=== PATIENT | male | born 1965 | race Caucasian/White ===

== ENCOUNTER 2020-07-24 04:28 | Emergency (ER) | payer BC, OTHER ==
--- OUTSIDE RECORDS SUMMARY | 2020-07-24 04:30 | XMS REPORT | Continuity of Care Document ---
:1965 Author Organization [facility] t Address [address] [place] [address] Dr. [address] [place] [address] Care Team Providers Name Role Phone Unavailable Unavailable Unavailable Problems Condition Condition Condition Status Onset Resolution Last Treating Co mments Source Name Details Category Date Date Treatment Clinician Date Allergic Allergic Problem [facility], [facility] - unspecifie unspecifie Me moria d d l seasonalit seasonalit Ou tpati y, y, ent unspecifie unspecifie Cl inics d trigger d trigger Mixed Mixed Problem Active [facility] hyperlipid hyperlipid [place] - emia emia [facility] ent Clinics HTN, goal HTN, goal Problem Active [facility] below below [facility] - 140/90 140/90 [facility] ent Clinics 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 sterolemia Me [facility] ent Clinics Gout Gout Problem Active [facility] involving involving Luke s - toe of toe of Memoria right right l foot, foot, Outpati unspecifie unspecifie en t d cause, d cause, Clinic s unspecifie unspecifie d d chronicity chronicity 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 Claudio kira in situ in situ l [facility] Skin Skin Diagnosis Active [facility] lesion of lesion of Luke s - hand hand Memoria l [facility] ent Clinics Allergies, Adverse Reactions, Alerts Allergy Allergy Status Severity Reaction(s) Onset Inactive Treating Comm ents Source Name Type Date Date Clinician Lisinopr Adverse Active flush, cough C HI [facility] il Reaction [facility] Medications Ordered Filled Start Stop Current Ordering Indication Dosage Frequency Signature Comments Components Source Medication Medication Date Date Medication? Clinician (SIG) Name Name Losartan Losartan Yes Inder [address] [facility] Potassium Potassium 1-10 Carmona Luke s - 00:00: Memoria 00 l Outpati ent Clinics Lisinopril Lisinopril Yes Inder [address] [facility]ona [facility] Outpati ent Clinics Claritin Claritin Yes Inder [address] [facility] Outpati ent Clinics Atorvastati Atorvastati Yes Inder [address] [facility] n Calcium n Calcium Carmona [facility] Simvastatin Simvastatin Yes Inder [address] [facility] Carmona in the [facility] Procedures This patient has no known procedures. Encounters Start End Encounter Admission Attending Care Care Encounter Source Date/Time Date/Time Type Type Clinicians Facility Department ID 2019-11-12 2019-11-12 [facility] [id number] [facility] 11:30:00 11:30:00 [facility] Medicine Outpati ent Clinics 2019-10-20 2019-10-20 [facility] [id number] [facility] 16:18:00 16:18:00 [facility] Medicine Outpati ent Clinics 2019-10-15 2019-10-15 [facility] [id number] 14:46:00 14:46:00 [facility] Medicine Outpati ent Clinics 2019-08-28 2019-08-28 [facility] [id number] [facility] 09:30:00 09:30:00 [facility] Medicine Outpati ent Clinics 2019-06-20 2019-06-20 [facility] [id number] [facility] 08:30:00 08:30:00 [facility] Medicine Outpati ent Clinics 2019-05-09 2019-05-09 [facility] [id number] [facility] 08:30:00 08:30:00 [facility] Medicine Outpati ent Clinics 2019-02-12 2019-02-12 [facility] [id number] 07:17:00 07:17:00 [facility] Medicine Outpati ent Clinics 2019-02-05 2019-02-05 Outpatient Izabella Churchill [id number] 15:00:00 15:00:00 [facility] Medicine l Medicine [facility] Results This patient has no known results.
[2020-07-24] MEDS ORDERED: ACETAMINOPHEN 500 MG TAB ONE (05:14)
[2020-07-24] MEDS ORDERED: MORPHINE 2 MG/ML SYR ONE (05:14)
[2020-07-24] MEDS ORDERED: ONDANSETRON 4 MG/2 ML VIAL ONE (05:15)
[2020-07-24] MEDS ORDERED: NA CHLORIDE 0.9% 0 ML IV ONE (05:15)
[2020-07-24] MEDS ORDERED: METRONIDAZOLE 500mg IVPB 500 MG/100 ML BAG IV ONE (05:15)
[2020-07-24] MEDS ORDERED: CIPROFLOXACIN 400mg IV 400 MG/200 ML BAG IV ONE (05:15)
[2020-07-24] MEDS ORDERED: NA CHLORIDE 0.9% 1,000 ML ONE (05:15)
[2020-07-24 05:35] LABS: Absolute Lymphocytes (CBC) 0.5 K/uL (0.7-4.9); Basophils % 0.1 % (0-1.3); Hematocrit 50.6 % (39.6-49.0); Lymphocytes % 6.5 % (15.3-44.8); MPV 8.6 fL (7.6-11.3); RBC Red Blood Cell Count 5.43 M/uL (4.33-5.43)
[2020-07-24 05:38] LABS: ALT/SGPT 58 U/L (12-78); AST/SGOT 26 U/L (15-37); Albumin 3.9 g/dL (3.4-5.0); Alkaline Phosphatase 85 U/L (45-117); BUN Blood Urea Nitrogen 10 mg/dL (7-18); Bicarbonate 20 mmol/L (21-32); Bilirubin Direct < 0.1 mg/dL (0-0.2); Bilirubin Total 0.6 mg/dL (0.2-1.0); Glucose Level 136 mg/dL (74-106); Lipase 159 U/L (73-393); Potassium 3.6 mmol/L (3.5-5.1); Protein, Total 8.3 g/dL (6.4-8.2); Sodium Level 138 mmol/L (136-145)
--- NOTE | 2020-07-24 06:35 | EDPHYS ---
Physician Documentation [facility] Name: Neymar Gottlieb Age: 55 yrs Sex: Male : 1965 Arrival Date: 07/24/2020 Time: 04:30 Bed 5 Private MD: Mathew [facility] ED Physician Maged Cox HPI: 07/24 05:06 This 55 yrs old Male presents to ER via Ambulatory with complaints of Fever, naveen chills, Diarrhea. 05:06 The patient reports fever, that was measured at 104 degrees Fahrenheit. Onset: The naveen symptoms/episode began/occurred 3 day(s) ago. Modifying factors: there are no obvious modifying factors. Associated signs and symptoms: Pertinent positives: abdominal pain, arthralgias, diarrhea. Severity of symptoms: At their worst the symptoms were mild moderate in the emergency department the symptoms are unchanged. The patient has not experienced similar symptoms in the past. - Immunization history:: Adult Immunizations up to date. - Social history:: Smoking status: Patient denies any tobacco usage or history of. ROS: 05:09 Eyes: Negative for injury, pain, redness, and discharge, ENT: Negative for injury, naveen pain, and discharge, Neck: Negative for injury, pain, and swelling, Cardiovascular: Negative for chest pain, palpitations, and edema, Respiratory: Negative for shortness of breath, cough, wheezing, and pleuritic chest pain, Back: Negative for injury and pain, : Negative for injury, bleeding, discharge, and swelling, MS/Extremity: Negative for injury and deformity, Skin: Negative for injury, rash, and discoloration, Neuro: Negative for headache, weakness, numbness, tingling, and seizure, Psych: Negative for depression, anxiety, suicide ideation, homicidal ideation, and hallucinations, Allergy/Immunology: Negative for hives, rash, and allergies, Endocrine: Negative for neck swelling, polydipsia, polyuria, polyphagia, and marked weight changes, Hematologic/Lymphatic: Negative for swollen nodes, abnormal bleeding, and unusual bruising. 05:09 Constitutional: Positive for body aches, chills, fatigue, fever, malaise. 05:09 Abdomen/GI: Positive for abdominal pain, diarrhea. Exam: 05:09 Head/Face: Normocephalic, atraumatic. Eyes: Pupils equal round and reactive to light, naveen extra-ocular motions intact. Lids and lashes normal. Conjunctiva and sclera are non-icteric and not injected. Cornea within normal limits. Periorbital areas with no swelling, redness, or edema. ENT: Nares patent. No nasal discharge, no septal abnormalities noted. Tympanic membranes are normal and external auditory canals are clear. Oropharynx with no redness, swelling, or masses, exudates, or evidence of obstruction, uvula midline. Mucous membranes moist. Neck: Trachea midline, no thyromegaly or masses palpated, and no cervical lymphadenopathy. Supple, full range of motion without nuchal rigidity, or vertebral point tenderness. No Meningismus. Chest/axilla: Normal chest wall appearance and motion. Nontender with no deformity. No lesions are appreciated. Cardiovascular: Regular rate and rhythm with a normal S1 and S2. No gallops, murmurs, or rubs. Normal PMI, no JVD. No pulse deficits. Respiratory: Lungs have equal breath sounds bilaterally, clear to auscultation and percussion. No rales, rhonchi or wheezes noted. No increased work of breathing, no retractions or nasal flaring. Back: No spinal tenderness. No costovertebral tenderness. Full range of motion. Male : Normal genitalia with no discharge or lesions. Skin: Warm, dry with normal turgor. Normal color with no rashes, no lesions, and no evidence of cellulitis. MS/ Extremity: Pulses equal, no cyanosis. Neurovascular intact. Full, normal range of motion. Neuro: Awake and alert, GCS 15, oriented to person, place, time, and situation. Cranial nerves II-XII grossly intact. Motor strength 5/5 in all extremities. Sensory grossly intact. Cerebellar exam normal. Normal gait. Psych: Awake, alert, with orientation to person, place and time. Behavior, mood, and affect are within normal limits. 05:09 Constitutional: The patient appears febrile. 05:09 Cardiovascular: Rate: tachycardic, Rhythm: regular, Pulses: Pulses are 4+ in bilateral radial, brachial, femoral, popliteal, posterior tibial and and dorsalis pedis arteries.. Heart sounds: normal, Edema: is not appreciated, JVD: is not appreciated. 05:09 Abdomen/GI: Inspection: abdomen appears normal, Bowel sounds: normal, Palpation: mild abdominal tenderness, in all quadrants, Liver: no appreciated palpable abnormalities, Hernia: not appreciated. Vital Signs: 04:42 BP 160 / 86; Pulse 108; Resp 18; Temp 100.3; Pulse Ox 95% on R/A; ll2 05:44 BP 131 / 78; Pulse 93; Resp 16; Pulse Ox 95% on R/A; Pain 0/10; ll2 06:45 BP 112 / 61 Supine; Pulse 91; ea 06:45 BP 122 / 76 Sitting; Pulse 94; ea 06:45 BP 111 / 72 Standing; Pulse 97; ea MDM: 04:38 Patient medically screened. [facility] 05:12 Differential diagnosis: Nonspecific abd pain, gastritis, cholecystitis, pancreatitis, naveen appendicitis, diverticulitis, viral gastroenteritis, gastroenteritis, viral Infection, bacterial infection. Data reviewed: vital signs, nurses notes, lab test result(s), radiologic studies, CT scan. Data interpreted: residential monitor: rate is 108 beats/min, rhythm is regular, Pulse oximetry: on room air is 95 %. Test interpretation: by ED physician or midlevel provider:. Counseling: I had a detailed discussion with the patient and/or guardian regarding: the historical points, exam findings, and any diagnostic results supporting the discharge/admit diagnosis, lab results, radiology results, the need for outpatient follow up, for definitive care, a family practitioner, a road traffic controller. 07/24 04:57 Order name: Basic Metabolic Panel; Complete Time: 06:01 [facility] 07/24 04:57 Order name: CBC with Diff; Complete Time: 06:01 [facility] 07/24 04:57 Order name: Hepatic Function; Complete Time: 06:01 [facility] 07/24 04:57 Order name: Lipase; Complete Time: 06:01 [facility] 07/24 04:57 Order name: Occult Blood [facility] 07/24 04:57 Order name: Stool Culture [facility] 07/24 04:57 Order name: Fecal Leukocyte Stain [facility] 07/24 04:57 Order name: CT Abd/Pelvis - IV Contrast Only [facility] 07/24 05:31 Order name: CREATININE WHOLE BLOOD; Complete Time: 06:01 [facility] 07/24 05:31 Order name: CREATININE WHOLE BLOOD [facility] 07/24 04:57 Order name: IV Saline Lock; Complete Time: 04:57 [facility] 07/24 04:57 Order name: Labs collected and sent; Complete Time: 04:57 naveen Administered Medications: 05:21 Drug: Cipro 400 mg Volume: 200 ml; Route: IVPB; Infused Over: 60 mins; Site: right ll2 antecubital; 05:22 Drug: Tylenol 1000 mg Route: PO; ll2 06:10 Follow up: Response: No adverse reaction ll2 05:22 Drug: NS 0.9% 1000 ml Route: IV; Rate: 1 bolus; Site: right antecubital; ll2 06:53 Follow up: Response: No adverse reaction; IV Status: Completed infusion ll2 05:23 Drug: Flagyl 500 mg Volume: 100 ml; Route: IVPB; Rate: 200 ml/hr; Infused Over: 30 ll2 mins; Site: right antecubital; 06:10 Follow up: Response: No adverse reaction; IV Status: Completed infusion ll2 05:23 Drug: morphine 2 mg Route: IVP; Site: right antecubital; ll2 06:53 Follow up: Response: No adverse reaction; RASS: Alert and Calm (0) 2 05:23 Drug: Zofran (Ondansetron) 4 mg Route: IVP; Site: right antecubital; ll2 06:10 Follow up: Response: No adverse reaction ll2 06:53 Not Given (Physician Discretion): NS 0.9% 1000 ml IV at 1 bolus Per protocol; 1000 mL ll2 bolus Disposition: 07/24/20 06:35 Discharged to Home. Impression: Abdominal tenderness, Diarrhea, unspecified, Fever, unspecified, Left sided colitis with complications - desending and sigmoidcolon. - Condition is Stable. - Discharge Instructions: Abdominal Pain, Adult, Food Choices to Help Relieve Diarrhea, Adult, Diarrhea, Adult, Fever, Adult, Abdominal Pain, Adult, Griy-rs-Diam, Diarrhea, Adult, [id number]. - Prescriptions for Bentyl 20 mg Oral Tablet - take 1 tablet by ORAL route every 6 hours As needed; 20 tablet. Flagyl 500 mg Oral Tablet - take 1 tablet by ORAL route every 12 hours for 7 days; 14 tablet. Cipro 500 mg Oral Tablet - take 1 tablet by ORAL route every 12 hours for 7 days; 14 tablet. - Medication Reconciliation Form, Thank You Letter, Antibiotic Education, Prescription Opioid Use form. - Follow up: Inder Carmona; When: 2 - 3 days; Reason: Recheck today's complaints, Continuance of care, Re-evaluation by your physician. Follow up: Ludwin Connor; When: 2 - 3 days; Reason: Recheck today's complaints, Re-evaluation by your physician. - Problem is new. - Symptoms have improved. Signatures: Dispatcher [employer] EDLazaro Atkinson RN RN Maged Ortiz MD MD cha Linscombe, Lacie, RN RN ll2 Corrections: (The following items were deleted from the chart) 06:52 06:35 07/24/2020 06:35 Discharged to Home. Impression: Abdominal tenderness; Diarrhea, ll2 unspecified; Fever, unspecified; Left sided colitis with complications - desending and sigmoidcolon. Condition is Stable. Discharge Instructions: Abdominal Pain, Adult, Food Choices to Help Relieve Diarrhea, Adult, Diarrhea, Adult, Fever, Adult, Abdominal Pain, Adult, [id number], Diarrhea, Adult, [id number]. Prescriptions for Bentyl 20 mg Oral Tablet - take 1 tablet by ORAL route every 6 hours As needed; 20 tablet, Flagyl 500 mg Oral Tablet - take 1 tablet by ORAL route every 12 hours for 7 days; 14 tablet, Cipro 500 mg Oral Tablet - take 1 tablet by ORAL route every 12 hours for 7 days; 14 tablet. and Forms are Medication Reconciliation Form, Thank You Letter, Antibiotic Education, Prescription Opioid Use. Follow up: Inder Carmona; When: 2 - 3 days; Reason: Recheck today's complaints, Continuance of care, Re-evaluation by your physician. Follow up: Ludwin Connor; When: 2 - 3 days; Reason: Recheck today's complaints, Re-evaluation by your physician. Problem is new. Symptoms have improved. naveen
--- NOTE | 2020-07-24 06:35 | ER ---
Nurse's Notes [facility] Name: Neymar Gottlieb Age: 55 yrs Sex: Male : 1965 Arrival Date: 07/24/2020 Time: 04:30 Bed 5 Private MD: Inder Carmona Diagnosis: Abdominal tenderness;Diarrhea, unspecified;Fever, unspecified;Left sided colitis with complications-desending and sigmoidcolon Presentation: 07/24 04:31 Chief complaint: Patient states: Fever and chills,bodyaches and having diarrhea. sg Coronavirus screen: chills, diarrhea, fever, Client presents with at least one sign or symptom that may indicate coronavirus-19. Standard/surgical mask placed on the client. Provider contacted for isolation considerations. Ebola Screen: Patient negative for fever greater than or equal to 101.5 degrees Fahrenheit, and additional compatible Ebola Virus Disease symptoms Patient denies exposure to infectious person. Patient denies travel to an Ebola-affected area in the 21 days before illness onset. No symptoms or risks identified at this time. Initial Sepsis Screen: Does the patient meet any 2 criteria? No. Patient's initial sepsis screen is negative. Does the patient have a suspected source of infection? No. Patient's initial sepsis screen is negative. Risk Assessment: Do you want to hurt yourself or someone else? Patient reports no desire to harm self or others. Onset of symptoms was July 24, 2020. Care prior to arrival: None. Transition of care: patient was not received from another setting of care. 04:31 Acuity: SUNITHA 3 sg 04:31 Method Of Arrival: Ambulatory sg - Immunization history:: Adult Immunizations up to date. - Social history:: Smoking status: Patient denies any tobacco usage or history of. Screenin:42 Abuse screen: Denies threats or abuse. Nutritional screening: No deficits noted. ll2 Tuberculosis screening: No symptoms or risk factors identified. Fall Risk IV access (20 points). Ambulatory Aid- None/Bed Rest/Nurse Assist (0 pts). Gait- Normal/Bed Rest/Wheelchair (0 pts) Mental Status- Oriented to own ability (0 pts). Total Carpenter Fall Scale indicates No Risk (0-24 pts). Assessment: 04:40 General: Appears in no apparent distress. Behavior is calm, cooperative, appropriate ll2 for age. Pain: Complains of pain in right lower quadrant and left lower quadrant Pain currently is 5 out of 10 on a pain scale. Quality of pain is described as crampy. Neuro: Level of Consciousness is awake, alert, obeys commands, Oriented to person, place, time, situation. Cardiovascular: Capillary refill < 3 seconds Patient's skin is warm and dry. Respiratory: Airway is patent Respiratory effort is even, unlabored, Respiratory pattern is regular, symmetrical. GI: Reports lower abdominal pain, diarrhea, Patient currently denies nausea, vomiting. : No signs and/or symptoms were reported regarding the genitourinary system. EENT: No signs and/or symptoms were reported regarding the EENT system. Derm: Skin is intact, is healthy with good turgor, Skin is dry, Skin is pink, warm \T\ dry. Skin temperature is warm. Musculoskeletal: Circulation, motion, and sensation intact. Range of motion: intact in all extremities. 05:34 Reassessment: pt to ct via stretcher. ll2 06:14 Reassessment: Patient and/or family updated on plan of care and expected duration. Pain ll2 level reassessed. Patient is alert, oriented x 3, equal unlabored respirations, skin warm/dry/pink. Patient denies pain at this time. Vital Signs: 04:42 BP 160 / 86; Pulse 108; Resp 18; Temp 100.3; Pulse Ox 95% on R/A; ll2 05:44 BP 131 / 78; Pulse 93; Resp 16; Pulse Ox 95% on R/A; Pain 0/10; ll2 06:45 BP 112 / 61 Supine; Pulse 91; ea 06:45 BP 122 / 76 Sitting; Pulse 94; ea 06:45 BP 111 / 72 Standing; Pulse 97; ea ED Course: 04:30 Patient arrived in ED. am2 04:30 nIder Carmona DO is Private Physician. am2 04:31 Arm band placed on. sg 04:33 Triage completed. sg 04:33 Esperanza Lee, EWELINA is Primary Nurse. ll2 04:38 Maged Cox MD is Attending Physician. naveen 04:42 Patient has correct armband on for positive identification. Call light in reach. Side ll2 rails up X 1. lunchroom monitor on. Pulse ox on. NIBP on. 04:45 Inserted saline lock: 20 gauge in right antecubital area, using aseptic technique. ds4 Blood collected. 05:41 CT Abd/Pelvis - IV Contrast Only In Process Unspecified. EDMS 06:33 Inder Carmona DO is Referral Physician. naveen 06:33 Ludwin Connor MD is Referral Physician. naveen 06:50 No provider procedures requiring assistance completed. IV discontinued, intact, ll2 bleeding controlled, No redness/swelling at site. Pressure dressing applied. Administered Medications: 05:21 Drug: Cipro 400 mg Volume: 200 ml; Route: IVPB; Infused Over: 60 mins; Site: right ll2 antecubital; 05:22 Drug: Tylenol 1000 mg Route: PO; ll2 06:10 Follow up: Response: No adverse reaction ll2 05:22 Drug: NS 0.9% 1000 ml Route: IV; Rate: 1 bolus; Site: right antecubital; ll2 06:53 Follow up: Response: No adverse reaction; IV Status: Completed infusion ll2 05:23 Drug: Flagyl 500 mg Volume: 100 ml; Route: IVPB; Rate: 200 ml/hr; Infused Over: 30 ll2 mins; Site: right antecubital; 06:10 Follow up: Response: No adverse reaction; IV Status: Completed infusion ll2 05:23 Drug: morphine 2 mg Route: IVP; Site: right antecubital; ll2 06:53 Follow up: Response: No adverse reaction; RASS: Alert and Calm (0) ll2 05:23 Drug: Zofran (Ondansetron) 4 mg Route: IVP; Site: right antecubital; ll2 06:10 Follow up: Response: No adverse reaction ll2 06:53 Not Given (Physician Discretion): NS 0.9% 1000 ml IV at 1 bolus Per protocol; 1000 mL ll2 bolus Outcome: 06:35 Discharge ordered by . naveen 06:50 Discharged to home ambulatory. ll2 06:50 Condition: stable 06:50 Discharge instructions given to patient, Instructed on discharge instructions, follow up and referral plans. medication usage, Demonstrated understanding of instructions, follow-up care, medications, Prescriptions given X 3. 06:52 Patient left the ED. ll2 Signatures: Dispatcher [employer] EDMS Lazaro Cardozo RN RN sg Anderson, Corey, MD MD cha Swanson, Donovan ds4 Marbella Stearns am2 Radha Howe, RN RN ea Esperanza Lee RN RN ll2
[2020-07-24 06:59] VITALS: TEMP 100.3; O2SAT 95
[2020-07-24 07:03] VITALS: BP 111/72
--- NOTE | 2020-07-25 13:57 | RAD REPORT ---
EXAM DESCRIPTION: CT - Abdomen Pelvis W Contrast - 07/24/2020 8:18 am CLINICAL HISTORY: ABD PAIN COMPARISON: None Available. TECHNIQUE: CT of the abdomen and pelvis performed following IV administration of iodinated contras t.. FINDINGS: Lung Bases: The visualized lung bases are clear. Bones: Minimal endplate spondylosis. Abdomen: Liver: The liver has normal size and decreased density. No intrahepatic biliary dilatation. Gallbladder: No calcified gallstones. Spleen, Pancreas, and Adrenal Glands: The spleen, pancreas, and adrenal glands are unremarkable. Kidneys: No hydronephrosis or obstructing calculus. Vasculature: Aortoiliac atherosclerosis. IVC is unremarkable. The portal vein is patent. The proxim al visceral and renal arteries are patent. Stomach: The stomach and duodenum have normal course. Other: No free intraperitoneal air. No free fluid or lymphadenopathy. Mild mesenteric edema. Pelvis: Bladder: Urinary bladder is decompressed. Bowel: No dilated loops of large or small bowel. Long segment mild wall thickening with adjacent in flammatory change of the descending and sigmoid colon. Appendix: Normal appendix. Pelvis: Prostate is not enlarged. IMPRESSION: 1. Findings compatible with acute nonspecific colitis of the descending and sigmoid colo n. 2. Hepatic steatosis. This exam was performed according to our departmental dose-optimization program, which includes autom ated exposure control, adjustment of the mA and/or kV according to patient size and/or use of iterati ve reconstruction technique. Electronically signed by: Jose Ramon Linton 07/24/2020 6:05 AM CDT Due to temporary technical issues with the PACS/Fluency reporting system, reports are being signed by the in house radiologist without review as a courtesy to ensure prompt reporting. The interpreting r adiologist is fully responsible for the content of the report.
== END 2020-07-24 06:52 | disposition home or self-care (01) ==
LOC: ER 04:28
DX: K52.9 Noninfective gastroenteritis and colitis, unspecified (principal)
CPT/HCPCS: 96365; 96361; 87045; 85025; 80048; 36415; 89055; 82274; 82565; 80076; 87046; 83690; 74177; 96375; 99284; Q9967; J2270; J7030; J2405; J0744